=== PATIENT | female | born 1975 | race Caucasian/White ===

== ENCOUNTER → 2016-11-25 | Outpatient (CLI) | payer OTHER ==
--- NOTE | 2016-11-27 09:46 | MM ---
Reason for exam: screening (asymptomatic). Last mammogram was performed 8 years and 4 months ago. History: Lumpectomy of the left breast, August 13, 2008. Took hormonal contraceptives for 2 years. Physical Findings: A clinical breast exam by your physician is recommended on an annual basis and results should be correlated with mammographic findings. MG 3D Screening Mammo W/Cad Bilateral CC and MLO view(s) were taken. Prior study comparison: July 25, 2008, bilateral diagnostic digital mammog. The breast tissue is heterogeneously dense. This may lower the sensitivity of mammography. No persisting abnormality seen with 3D images. ASSESSMENT: Negative, BI-RAD 1 RECOMMENDATION: Routine screening mammogram of both breasts in 1 year.
== END | disposition home or self-care (01) ==
LOC: RADMAMWWP 13:16
PROVIDERS: ATTEND Family Medicine
DX: Z12.31 Encounter for screening mammogram for malignant neoplasm of breast (principal)
CPT/HCPCS: 77063; G0202

== ENCOUNTER → 2016-11-30 | Outpatient (CLI) | payer OTHER ==
[2016-11-30 08:30] LABS: Basophils % (A) 1 %; CH 22.3; CHCM 29.1; Eosinophils # (A) 0.1 k/uL (0-0.7); Eosinophils % (A) 2 %; HDW 2.82; HGB 8.6 gm/dL (11.4-16.0); Hypochromasia Marked; Luc # (Auto) 0.08; Luc % (Auto) 1; Lymphocytes # (A) 1.9 k/uL (1.0-4.8); Lymphocytes % (A) 34 %; MCH 22.8 pg (25.0-35.0); MCHC 29.7 g/dL (31.0-37.0); MCV 76.8 fL (80.0-100.0); Mean Platelet Volume 7.1; Microcytosis Slight; Monocytes # (A) 0.4 k/uL (0-1.0); Monocytes % (A) 7 %; Neutrophils # (A) 3.1 k/uL (1.3-7.7); Neutrophils % (A) 55 %; RBC 3.77 m/uL (3.80-5.40); RDW 15.6 % (11.5-15.5); WBC 5.7 k/uL (3.8-10.6); WBC (Perox) 5.66
[2016-11-30 11:31] LABS: Glucose 2 Hour 123 mg/dL
[2016-11-30 12:51] LABS: ALT 22 U/L (9-52); AST 16 U/L (14-36); Alkaline Phosphatase 78 U/L (38-126); Anion Gap 8 mmol/L; Blood Urea Nitrogen 19 mg/dL (7-17); Calcium 8.6 mg/dL (8.4-10.2); Carbon Dioxide 25 mmol/L (22-30); Chloride 108 mmol/L (98-107); Glucose 93 mg/dL (74-99); Non-African American GFR(MDRD) >60 (>60 ml/min/1.73 sqM); Potassium 4.5 mmol/L (3.5-5.1); Sodium 141 mmol/L (137-145); Total Bilirubin 0.2 mg/dL (0.2-1.3); Total Protein 6.1 g/dL (6.3-8.2)
[2016-11-30 16:32] LABS: Iron Saturation 3.11 (12.00-45.00)
[2016-11-30 20:23] LABS: Cholesterol 183 mg/dL (<200); HDL Cholesterol 46 mg/dL (40-60)
== END | disposition home or self-care (01) ==
LOC: LABWHC1 08:00
PROVIDERS: ATTEND Psychiatry & Neurology Neurology
DX: Z00.00 Encounter for general adult medical examination without abnormal findings (principal); G25.81 Restless legs syndrome
CPT/HCPCS: 36415; 80053; 80061; 82306; 82607; 82728; 82947; 82950; 83540; 83550; 84439; 84443; 84466; 84481; 85025

== ENCOUNTER → 2018-05-26 | Outpatient (CLI) | payer BC ==
--- NOTE | 2018-05-27 09:28 | MM ---
Reason for exam: screening (asymptomatic). Last mammogram was performed 1 year and 6 months ago. History: Lumpectomy of the left breast, August 13, 2008. Took hormonal contraceptives for 2 years. Physical Findings: A clinical breast exam by your physician is recommended on an annual basis and results should be correlated with mammographic findings. MG 3D Screening Mammo W/Cad Bilateral CC and MLO view(s) were taken. Prior study comparison: November 25, 2016, bilateral MG 3d screening mammo w/cad. July 25, 2008, bilateral diagnostic digital mammog. The breast tissue is heterogeneously dense. This may lower the sensitivity of mammography. No suspicious abnormality. Post lumpectomy change on the left. ASSESSMENT: Benign, BI-RAD 2 RECOMMENDATION: Routine screening mammogram of both breasts in 1 year.
== END | disposition home or self-care (01) ==
LOC: RADMAMWWP 14:39
PROVIDERS: ATTEND Family Medicine
DX: Z12.31 Encounter for screening mammogram for malignant neoplasm of breast (principal)
CPT/HCPCS: 77063; 77067

== ENCOUNTER → 2020-02-06 | Outpatient (CLI) | payer BC | END | disposition home or self-care (01) | LOC: LABWHC1 11:20 | PROVIDERS: ATTEND Nurse Practitioner Family | DX: U07.1 COVID-19 (principal) | CPT/HCPCS: U0003; C9803 ==

== ENCOUNTER → 2020-03-19 | Outpatient (CLI) | payer MEDICAID ==
--- NOTE | 2020-03-20 10:56 | MM ---
Reason for exam: screening (asymptomatic). Last mammogram was performed 1 year and 10 months ago. History: Lumpectomy of the left breast, August 13, 2008. Took hormonal contraceptives for 2 years. Physical Findings: A clinical breast exam by your physician is recommended on an annual basis and results should be correlated with mammographic findings. MG 3D Screening Mammo W/Cad Bilateral CC and MLO view(s) were taken. Prior study comparison: May 26, 2018, bilateral MG 3d screening mammo w/cad. November 25, 2016, bilateral MG 3d screening mammo w/cad. The breast tissue is heterogeneously dense. This may lower the sensitivity of mammography. No significant changes when compared with prior studies. ASSESSMENT: Benign, BI-RAD 2 RECOMMENDATION: Routine screening mammogram of both breasts in 1 year.
== END | disposition home or self-care (01) ==
LOC: RADMAMWWP 09:46
PROVIDERS: ATTEND Family Medicine
DX: Z12.31 Encounter for screening mammogram for malignant neoplasm of breast (principal)
CPT/HCPCS: 77063; 77067

== ENCOUNTER → 2021-12-12 | Outpatient (CLI) | payer MEDICAID ==
[2021-12-12 23:04] LABS: Basophils # (A) 0.02 X 10*3/uL (0.00-0.10); Basophils % (A) 0.3 %; Eosinophils # (A) 0.22 X 10*3/uL (0.04-0.35); Eosinophils % (A) 2.8 %; HCT 34.8 % (37.2-46.3); HGB 10.4 g/dL (12.0-15.0); Immature Grans, Automated 0.3 %; Lymphocytes # (A) 1.94 X 10*3/uL (0.90-5.00); Lymphocytes % (A) 25.1 %; MCH 25.4 pg (27.0-32.0); MCHC 29.9 g/dL (32.0-37.0); MCV 85.1 fL (80.0-97.0); Mean Platelet Volume 9.6 fL (9.5-12.2); Monocytes % (A) 6.5 %; NRBC Per 100 WBC 0 /100 WBCS (0.0-0.0); Neutrophils # (A) 5.03 X 10*3/uL (1.80-7.70); Platelet Count 460 X 10*3/uL (140-440); RBC 4.09 X 10*6/uL (4.10-5.20); RDW 13.8 % (11.5-14.5); WBC 7.73 X 10*3/uL (4.50-10.00)
[2021-12-13 11:38] LABS: ALT 13 U/L (8-44); AST 16 U/L (13-35); African American GFR (CKD) 88.2 (60.0-200.0); Albumin/Globulin Ratio 1.43 (1.60-3.17); Alkaline Phosphatase 87 U/L (41-126); Amylase 37 U/L (23-121); BUN/Creat Ratio 15.89 Ratio (12.00-20.00); Blood Urea Nitrogen 14.3 mg/dL (9.0-27.0); Calcium 8.9 mg/dL (8.7-10.3); Carbon Dioxide 23.7 mmol/L (20.0-27.5); Chloride 104 mmol/L (96-109); Globulin 2.8 g/dL (1.6-3.3); Glucose 136 mg/dL (70-110); Lipase 20 U/L (14-63); Non-African American GFR(CKD) 76.1 (60.0-200.0); Potassium 4.3 mmol/L (3.5-5.5); Sodium 140 mmol/L (135-145); Total Bilirubin <0.15 mg/dL (0.30-1.20); Total Protein 6.8 g/dL (6.2-8.2)
== END | disposition home or self-care (01) ==
LOC: LABWHC1 15:09
PROVIDERS: ATTEND Family Medicine
DX: R10.13 Epigastric pain (principal)
CPT/HCPCS: 36415; 80053; 82150; 83690; 85025

== ENCOUNTER → 2021-12-12 | Outpatient (CLI) | payer MEDICAID ==
--- NOTE | 2021-12-12 16:07 | XR ---
EXAMINATION TYPE: XR abdomen acute w cxr DATE OF EXAM: 12/12/2021 3:52 PM INDICATION: Patient age:Female; 46 years old; Reason for study: R10.13 EPIGASTRIC PAIN; COMPARISON: None. TECHNIQUE: Two radiographic views of the abdomen (upright and supine) and a frontal chest radiograph were obtained. FINDINGS CHEST: Lungs/Pleura: The lungs are clear. There is no evidence of pleural effusion, focal consolidation or p neumothorax. Mediastinum: Unremarkable. Vasculature: Normal. Heart: Normal in size. Musculoskeletal: The osseous structures are intact. Other findings: No significant. FINDINGS ABDOMEN: Bowel gas pattern: Normal without dilated loops of small or large bowel. Fecal material and gas are d emonstrated throughout the colon and rectum. Abnormal calcifications: None. Musculoskeletal: Normal. Other: Pelvic phlebolith noted. IMPRESSION: 1. No radiographic evidence for acute abdominal process. 2. No acute cardiopulmonary process
== END | disposition home or self-care (01) ==
LOC: RADXRMAIN 15:39
PROVIDERS: ATTEND Family Medicine
DX: R10.13 Epigastric pain (principal)
CPT/HCPCS: 74022

== ENCOUNTER → 2021-12-22 | Outpatient (CLI) | payer MEDICAID ==
--- NOTE | 2021-12-22 10:34 | US ---
EXAMINATION TYPE: US abdomen complete DATE OF EXAM: 12/22/2021 COMPARISON: NONE CLINICAL HISTORY: R10.13 epigastric pain. Pt states upper ABD cramping and pain TECHNIQUE: Multiple sonographic images of the abdomen are obtained. FINDINGS: EXAM MEASUREMENTS: Liver Length: 17.6 cm Gallbladder Wall: 0.3 cm CBD: 0.4 cm Spleen: 11.0 cm Right Kidney: 9.7 x 4.5 x 5.2 cm Left Kidney: 10.2 x 4.9 x 5.0 cm OIL RIGGER NOTES: Pancreas: wnl, tail obscured by overlying bowel gas Liver: Heterogeneous Gallbladder: wnl Evidence for sonographic Montero's sign: No CBD: wnl Spleen: wnl Right Kidney: wnl Left Kidney: wnl Upper IVC: wnl Abd Aorta: wnl The visualized liver slightly heterogeneous. The intrahepatic portion of the IVC and visualized abdo audie aorta are within normal limits. There is no evidence of cholelithiasis. Common bile duct is u nremarkable. The visualized portions of the pancreas are homogenous. The spleen is unremarkable. K idneys are symmetric and free of hydronephrosis. No renal lesions are seen. IMPRESSION: No acute findings are evident.
== END | disposition home or self-care (01) ==
LOC: RADUSWWP 09:40
PROVIDERS: ATTEND Family Medicine
DX: R10.13 Epigastric pain (principal)
CPT/HCPCS: 76700

== ENCOUNTER → 2022-01-05 | Outpatient (CLI) | payer MEDICAID ==
--- NOTE | 2022-01-05 16:19 | XR ---
EXAMINATION TYPE: XR lumbosacral spine min 4V DATE OF EXAM: 01/05/2022 COMPARISON: None HISTORY: Low back pain TECHNIQUE: 5 view lumbar spine FINDINGS: There are 5 lumbar-type vertebral bodies. Pedicles are intact. No spondylolytic defects are evident. There is loss of disc height L5-S1. Some disc space narrowing may be present L1 to and post eriorly at L3-4 and L2-3. Vertebral body heights are preserved. Alignment is preserved. IMPRESSION: 1. Mild degenerative disc changes.
== END | disposition home or self-care (01) ==
LOC: RADXRMAIN 15:20
PROVIDERS: ATTEND Family Medicine
DX: M51.36 Other intervertebral disc degeneration, lumbar region (principal); M54.50 Low back pain, unspecified
CPT/HCPCS: 72110

== ENCOUNTER → 2022-01-05 | Outpatient (CLI) | payer MEDICAID ==
--- NOTE | 2022-01-06 19:02 | MM ---
Reason for Exam: Screening (asymptomatic). Last mammogram was performed 1 year(s) and 9 month(s) ago. Patient History: Menarche at age 11. First Full-Term at age 20. Patient used Hormonal Contraceptives for 2 years. 08/13/2008, Lumpectomy on the Left side. Paternal grandmother had ovarian cancer. Last menstrual period: 12/13/2021 Risk Values: Francheska 5 year model risk: 0.8%. NCI Lifetime model risk: 8.4%. Prior Study Comparison: 11/25/2016 Bilateral Screening Mammogram, [facility]. 05/26/2018 Bilateral Screening Mammogram, [facility]. 03/19/2020 Bilateral Screening Mammogram, [facility]. Tissue Density: The breast tissue is heterogeneously dense. This may lower the sensitivity of mammography. Findings: Analyzed By CAD. Some chronic distortion is within the left breast. No significant interval change is evident. No suspicious groups of microcalcifications, spiculated or lobular masses, architectural distortion or other secondary signs of malignancy are mammographically apparent. Overall Assessment: Benign, BI-RAD 2 Management: Screening Mammogram of both breasts in 1 year. A negative mammogram report should not preclude additional follow up of suspicious palpable abnormalities. Patient should continue monthly self breast exam. A clinical breast exam by your physician is recommended on an annual basis and results should be correlated with mammographic findings. Electronically signed and approved by: Mandeep West D.O. Radiologis
== END | disposition home or self-care (01) ==
LOC: RADMAMWWP 15:00
PROVIDERS: ATTEND Family Medicine
DX: Z12.31 Encounter for screening mammogram for malignant neoplasm of breast (principal); Z80.41 Family history of malignant neoplasm of ovary
CPT/HCPCS: 77063; 77067

== ENCOUNTER → 2022-01-29 | Outpatient (CLI) | payer MEDICAID ==
--- NOTE | 2022-01-29 14:24 | US ---
EXAMINATION TYPE: US pelvis complete transvag DATE OF EXAM: 01/29/2022 COMPARISON: NONE CLINICAL HISTORY: N92.0 MENORRHAGIA. Heavy periods. Hx 3 C sections, D and C. . TECHNIQUE: Transvaginal (TV) and Transabdominal (TA) . Transabdominal sonographic images of the pel vis were acquired. Transvaginal sonographic images were medically necessary to better assess the fol lowing anatomy: Ovaries Date of LMP: 01/08/2022 EXAM MEASUREMENTS: Uterus: 12.6 x 7.4 x 5.4 cm Endometrial Stripe: 0.84 cm Right Ovary: 3.2 x 1.3 x 1.4 cm Left Ovary: 3.4 x 1.8 x 1.6 cm 1. Uterus: Appears enlarged. Anechoic area seen in cervix: 1.1 x 0.8 x 0.7 cm. Complex area seen TA mid uterus: 1.4 x 1.2 x 1.0 cm. 2. Endometrium: Measures 0.84 cm. 3. Right Ovary: Anechoic area seen: 1.1 x 1.1 x 0.9 cm. 4. Left Ovary: Complex area seen: 1.4 x 1.0 x 0.7 cm. 5. Bilateral Adnexa: Free fluid seen in left adnexa. 6. Posterior cul-de-sac: Free fluid seen. Area seen TA in the midline pelvis thought to be left ovary. IMPRESSION: 1. The uterus is enlarged. I cannot exclude leiomyoma or masses other etiology. Uterine segment. 2. Simple cyst right ovary complex lesion left ovary.
== END | disposition home or self-care (01) ==
LOC: RADUSWWP 12:50
PROVIDERS: ATTEND Obstetrics & Gynecology
DX: N92.0 Excessive and frequent menstruation with regular cycle (principal); N83.291 Other ovarian cyst, right side; N85.2 Hypertrophy of uterus
CPT/HCPCS: 76830; 76856

== ENCOUNTER → 2022-04-23 | Outpatient (CLI) | payer BC ==
[2022-04-23 15:01] LABS: Basophils # (A) 0.04 X 10*3/uL (0.00-0.10); Basophils % (A) 0.5 %; Eosinophils # (A) 0.17 X 10*3/uL (0.04-0.35); Eosinophils % (A) 2.1 %; HCT 33.1 % (37.2-46.3); HGB 9.4 g/dL (12.0-15.0); Immature Grans, Automated 0.4 %; Lymphocytes # (A) 1.96 X 10*3/uL (0.90-5.00); Lymphocytes % (A) 24.1 %; MCHC 28.4 g/dL (32.0-37.0); MCV 81.1 fL (80.0-97.0); Mean Platelet Volume 9.3 fL (9.5-12.2); Monocytes # (A) 0.58 X 10*3/uL (0.20-1.00); Monocytes % (A) 7.1 %; NRBC Per 100 WBC 0 /100 WBCS (0.0-0.0); Neutrophils # (A) 5.34 X 10*3/uL (1.80-7.70); Neutrophils % (A) 65.8 %; Platelet Count 422 X 10*3/uL (140-440); RBC 4.08 X 10*6/uL (4.10-5.20); RDW 17.6 % (11.5-14.5); WBC 8.12 X 10*3/uL (4.50-10.00)
[2022-04-23 16:19] LABS: African American GFR (CKD) 119.6 (60.0-200.0); Anion Gap 13.2 mmol/L (10.00-18.00); BUN/Creat Ratio 19.43 Ratio (12.00-20.00); Blood Urea Nitrogen 13.6 mg/dL (9.0-27.0); Calcium 8.8 mg/dL (8.7-10.3); Carbon Dioxide 20.8 mmol/L (20.0-27.5); Non-African American GFR(CKD) 103.2 (60.0-200.0); Potassium 4.4 mmol/L (3.5-5.5)
== END | disposition home or self-care (01) ==
LOC: LABWHC1 10:14
PROVIDERS: ATTEND Obstetrics & Gynecology
DX: Z01.812 Encounter for preprocedural laboratory examination (principal)
CPT/HCPCS: 36415; 80048; 85025

== ENCOUNTER 2022-04-30 05:32 | Day surgery (SDC) | payer BC, MEDICAID ==
[2022-04-27 16:14] VITALS: BMI 35.6
--- NOTE | 2022-04-29 11:53 | P.HPOB ---
History of Present Illness H&P Date: 04/29/22 Chief Complaint: menorrhagia 46 year old presents for total laparoscopic hysterectomy and bilateral salpingectomy using da natalia, diagnostic cystoscopy, possible GARRET BSO. Review of Systems All systems: negative Constitutional: Denies chills, Denies fever Eyes: denies blurred vision, denies pain Ears, nose, mouth and throat: Denies headache, Denies sore throat Cardiovascular: Denies chest pain, Denies shortness of breath Respiratory: Denies cough Gastrointestinal: Denies abdominal pain, Denies diarrhea, Denies nausea, Denies vomiting Genitourinary: Denies dysuria, Denies hematuria Musculoskeletal: Denies myalgias Integumentary: Denies pruritus, Denies rash Neurological: Denies numbness, Denies weakness Psychiatric: Denies anxiety, Denies depression Endocrine: Denies fatigue, Denies weight change Past Medical History Past Medical History: No Reported History Additional Past Medical History / Comment(s): RESTLESS LEG SYNDROME. HEAVY PERIODS WITH LOW IRON AND LOW HEMOGLOBIN History of Any Multi-Drug Resistant Organisms: None Reported Past Surgical History: Breast Surgery, Section, Tonsillectomy Additional Past Surgical History / Comment(s): LEFT BREAST CYST REMOVAL. CYSTS REMOVED FROM HAND. MULTIPLE LIPOMA REMOVALS Past Anesthesia/Blood Transfusion Reactions: No Reported Reaction Past Psychological History: No Psychological Hx Reported Smoking Status: Never smoker Past Alcohol Use History: None Reported Past Drug Use History: None Reported - Past Family History Brother(s) Family Medical History: Deep Vein Thrombosis (DVT) Medications and Allergies Home Medications Medication Instructions Recorded Confirmed Type Montelukast [Singulair] 10 mg PO DAILY 04/27/22 04/27/22 History Pramipexole [Mirapex] 0.75 mg PO HS 04/27/22 04/27/22 History Allergies Allergy/AdvReac Type Severity Reaction Status Date / Time No Known Allergies Allergy Verified 04/27/22 16:03 Exam Osteopathic Statement: *. No significant issues noted on an osteopathic structural exam other than those noted in the History and Physical/Consult. HEart: RRR Lungs: CTAB Abdomen: soft, nontender Extremeties: neg alexander's Assessment and Plan (1) Menorrhagia Status: Acute Code(s): N92.0 - EXCESSIVE AND FREQUENT MENSTRUATION WITH REGULAR CYCLE SNOMED Code(s): 987927746 Plan: Total laparoscopic hysterectomy bilateral salpingectomy with da natalia, diagnostic cystoscopy and possible GARRET BSO
[2022-04-30] MEDS ORDERED: SCOPOLAMINE 1 MG/72 HR PATCH TRANSDERM ONE (05:54)
[2022-04-30] MEDS ORDERED: LIDOCAINE 1% (10MG/ML) FOR IV START INTRADERMA PRN (05:54)
[2022-04-30] MEDS ORDERED: DEXAMETHASONE SOD PHOSPHATE 4 MG/ML 1 ML VIAL IV ONE (05:54)
[2022-04-30] MEDS ORDERED: LACTATED RINGERS 1,000 ML IV SCH (05:54)
[2022-04-30 06:32] LABS: Anisocytosis Slight; Basophils % (A) 0 %; Eosinophils # (A) 0.2 k/uL (0-0.7); Eosinophils % (A) 3 %; HCT 34.1 % (34.0-46.0); HGB 10.7 gm/dL (11.4-16.0); Hypochromasia Moderate; Lymphocytes # (A) 2.1 k/uL (1.0-4.8); Lymphocytes % (A) 36 %; MCH 24.6 pg (25.0-35.0); MCHC 31.5 g/dL (31.0-37.0); MCV 78.3 fL (80.0-100.0); Mean Platelet Volume 6.5; Microcytosis Slight; Monocytes # (A) 0.3 k/uL (0-1.0); Monocytes % (A) 6 %; Neutrophils % (A) 53 %; Platelet Count 397 k/uL (150-450); RBC 4.36 m/uL (3.80-5.40); RDW 17.6 % (11.5-15.5); WBC 5.8 k/uL (3.8-10.6)
[2022-04-30] MEDS ORDERED: MIDAZOLAM 2 MG/2 ML VIAL IV ONE (06:46)
[2022-04-30] MEDS ORDERED: HYDROmorphone 0.5 MG/0.5 ML SYRINGE IVP PRN (07:00)
[2022-04-30] MEDS ORDERED: ONDANSETRON 4 MG/2 ML VIAL IVP PRN ×2 (07:00→10:04)
[2022-04-30] MEDS ORDERED: LIDOCAINE 2% INJ 20 MG/ML (2 ML VIAL) ONE (07:14)
[2022-04-30] MEDS ORDERED: SUCCINYLCHOLINE CHLORIDE 200 MG/10 ML VIAL IV ONE (07:14)
[2022-04-30] MEDS ORDERED: PHENYLEPHRINE-0.9% NACL SYG 1,000 MCG/10 ML SYRINGE ONE (07:14)
[2022-04-30] MEDS ORDERED: ROCURONIUM 10 MG/ML (5 ML VIAL) IV ONE (07:14)
[2022-04-30] MEDS ORDERED: HYDROmorphone (PF) 1 MG/ML ONE (07:14)
[2022-04-30] MEDS ORDERED: GLYCOPYRROLATE 0.2 MG/ML 2 ML VIAL ONE (07:14)
[2022-04-30] MEDS ORDERED: PROPOFOL 10 MG/ML 20 ML VIAL IV ONE (07:14)
[2022-04-30] MEDS ORDERED: NEOSTIGMINE 1 MG/ML 10 ML VIAL ONE (07:14)
[2022-04-30] MEDS ORDERED: fentaNYL (PF) 50 MCG/ML 2 ML AMP ONE (07:14)
--- NOTE | 2022-04-30 07:58 | P.ANPRN ---
Procedure Note - Anesthesia - Epidural/Spinal Spinal Time Out Performed: Yes Date of Procedure: 04/30/22 Procedure Start Time: 06:45 Procedure Stop Time: 06:50 Location of Patient: PreOp Indication: Acute Post-Operative Pain, Requested by Surgeon Sedation Type: Sedate with meaningful contact maintained Preparation: Sterile Prep Number of Attempts: 1 Position: Sitting Catheter: None Needle Guage: 25 Injectate: 300mcg Duramorph and 20mcg fentanyl Blood Aspirated: No Pain Paresthesia on Injection Noted: No Events: Uneventful and Well Tolerated
[2022-04-30] MEDS ORDERED: BUPIVACAINE (PF) 0.25% 30 ML VIAL SQ ONE (08:33)
[2022-04-30] MEDS ORDERED: LACTATED RINGERS 1,000 ML IV ONE (09:02)
--- NOTE | 2022-04-30 09:19 | P.OP ---
Date of Procedure: 04/30/22 Preoperative Diagnosis: 1. menorrhagia Postoperative Diagnosis: 1. menorrhagia 2. pelvic adhesions 3. right ovarian cyst Procedure(s) Performed: Total laparoscopic hysterectomy bilateral salpingectomy and removal of right ovarian cyst using da Mayo, diagnostic cystoscopy Anesthesia: BAYLEE Surgeon: Julia Jha Scorer Helper #1: Stacey Enrique Estimated Blood Loss (ml): 150 IV fluids (ml): 1,000 Urine output (ml): 100 Pathology: other (Uterus, cervix, bilateral fallopian tubes and right ovarian cyst) Condition: stable Disposition: PACU Operative Findings: Enlarged uterus sounded to 12 cm, adhesions from the bowel to left pelvic sidewall. Adhesions from the anterior uterus and bladder to the anterior abdominal wall. Normal appearing ovaries except for a cyst in the right ovary that was removed. Description of Procedure: Patient taken the operating room where general anesthesia was obtained without difficulty. She is prepped and draped in normal sterile fashion dorsal lithotomy position, legs placed in the Tony stirrups. Weighted speculum placed in the vagina and the anterior lip the cervix was grasped with single-tooth tenaculum. The uterus sounded to 12 cm and the cervix diameter was 4 cm. The appropriate manipulator tip and ring were placed on the Aileen manipulator. The Aileen manipulator was then placed in the uterus. Lopez catheter was also placed. Attention was then turned to the abdomen and gloves were changed. A 5 mm supraumbilical incision was made the scalpel and a 5 mm optical trocar was placed under direct visualization. 10 cm to the right of this and 2 cm down a 5 mm incision was made and 8 mm da Mayo port was placed under direct visualization. Same measurements on the opposite side of the patient's abdomen, the 5 mm incision was made and 8 mm da Mayo port was placed under direct visualization. In the left upper quadrant a 10 mm incision was made and a 10 mm optical trocar was placed under direct visualization. The 5 mm optical trocar was then replaced with the 8 mm da Mayo camera port. The robot was docked on patient's left side. The camera was introduced and then the monopolar curved scissor and [place] bipolar placed under direct visualization. I broke scrub and went to the physician console. The left fallopian tube was grasped with a grasper, cauterized with the [place] bipolar and cut with monopolar curved scissors to free the fimbriated end which was then pulled through the trocar. The left round ligament and left uterosacral ligaments were cauterized with the [place] bipolar and cut with monopolar curved scissors. The posterior leaf of the broad ligament was taken down using the monopolar curved scissors. Anterior leaf of the broad ligament was then taken down using the monopolar curved scis sors. The uterine artery was cauterized with the [place] bipolar and cut with monopolar curved scissors. The bladder flap was then started using the monopolar curved scissors. Attention was then turned to the right side of the patient's anatomy and the right fallopian tube segment was cauterized with the [place] bipolar and cut with monopolar curved scissors, the specimen was removed through the customer care assistant port. The right round ligament and utero-ovarian ligaments were cauterized with the [place] bipolar and cut with monopolar curved scissors. Posterior leaf of the broad ligament was taken down using the monopolar curved scissors and the anterior leaf was taken down using the monopolar curved scissors. The uterine artery was cauterized the [place] bipolar cut with monopolar curved scissors. The bladder flap was then finished on this side. Anterior colpotomy was made using the monopolar curved scissors. The rest of the uterus was from the vaginal cuff by following the ring around with the monopolar curved scissors through the uterosacral ligaments back to the anterior portion. Once the uterus and cervix were amputated they were pulled through the vaginal cuff. Hemostasis was assured. The instruments were changed for the Cardier forcep and the jah suture cut. The vaginal cuff was then closed using O stratafix barbed suture in a running fashion. Hemostasis was again assured and the pelvis was irrigated. All instruments were removed from the abdomen and the robot was undocked. I scrubbed back in to perform a cystoscopy. There were jets from both ureteral orifices. The abdominal incisions were closed with 4-0 Vicryl in a subcuticular fashion. Patient tolerated the procedure well, sponge and instrument counts correct 2 and she was taken to recovery room in stable condition condition
[2022-04-30] MEDS ORDERED: SIMETHICONE 80 MG CHEWABLE PO PRN (10:04)
[2022-04-30] MEDS ORDERED: KETOROLAC 15 MG/ML 1 ML VIAL IVP PRN (10:04)
[2022-04-30] MEDS ORDERED: METOCLOPRAMIDE 5 MG/ML 2 ML VIAL IVP PRN (10:04)
[2022-04-30 13:02] VITALS: RESP 16
[2022-04-30] MEDS: SENNOSIDES-DOCUSATE SODIUM 1 EACH TAB PO SCH (20:34)
[2022-04-30 20:58] VITALS: TEMP 98.3
[2022-04-30] MEDS ORDERED: PRAMIPEXOLE 0.25 MG TAB PO SCH (21:00)
[2022-05-01] MEDS: ACETAMINOPHEN TAB 325 MG TAB PO PRN ×2 (04:44→11:28)
[2022-05-01 07:21] LABS: Anisocytosis Slight; Basophils % (A) 0 %; Eosinophils % (A) 1 %; HCT 29.9 % (34.0-46.0); HGB 9.3 gm/dL (11.4-16.0); Hypochromasia Moderate; Lymphocytes # (A) 2.4 k/uL (1.0-4.8); Lymphocytes % (A) 26 %; MCH 24.9 pg (25.0-35.0); MCHC 31.2 g/dL (31.0-37.0); MCV 79.8 fL (80.0-100.0); Mean Platelet Volume 6.9; Microcytosis Slight; Monocytes # (A) 0.6 k/uL (0-1.0); Monocytes % (A) 7 %; Neutrophils # (A) 5.9 k/uL (1.3-7.7); Neutrophils % (A) 65 %; Platelet Count 346 k/uL (150-450); RBC 3.75 m/uL (3.80-5.40); RDW 17.8 % (11.5-15.5); WBC 9.1 k/uL (3.8-10.6)
[2022-05-01 07:54] VITALS: BP 116/67; PULSE 82
--- NOTE | 2022-05-01 08:06 | P.DS ---
Providers Expected date of discharge: 05/01/22 Attending physician: Julia Jha Primary care physician: Yogi Fenton - Discharge Diagnosis(es) (1) Menorrhagia Current Visit: No Status: Resolved (2) History of robot-assisted laparoscopic hysterectomy Current Visit: Yes Status: Acute Hospital Course: Patient presented for TLHBSO using da Mayo and diagnostic cystoscopy. She underwent this procedure without complication. Postoperative course was uneventful. She denies nausea, vomiting, chest pain, shortness of breath or calf pain. Her incisions are clean, dry, intact. Patient will be discharged home postoperative day #1 in stable condition to follow-up with me in 3 weeks. Plan - Discharge Summary Discharge Rx Participant: Yes New Discharge Prescriptions: New Ibuprofen [Motrin] 600 mg PO Q6HR PRN #30 tab PRN Reason: Mild Pain Or Fever >= 100.5 oxyCODONE HCL 5 mg PO Q6H 3 Days #12 cap No Action Montelukast [Singulair] 10 mg PO DAILY Pramipexole [Mirapex] 0.75 mg PO HS Discharge Medication List Montelukast [Singulair] 10 mg PO DAILY 04/27/22 [History] Pramipexole [Mirapex] 0.75 mg PO HS 04/27/22 [History] Ibuprofen [Motrin] 600 mg PO Q6HR PRN #30 tab 05/01/22 [Rx] oxyCODONE HCL 5 mg PO Q6H 3 Days #12 cap 05/01/22 [Rx] Follow up Appointment(s)/Referral(s): Julia Jha DO [Doctor of Osteopathic Medicine] - 3 Weeks Discharge Disposition: HOME SELF-CARE
[2022-05-01] MEDS: SENNOSIDES-DOCUSATE SODIUM 1 EACH TAB PO SCH (08:26)
[2022-05-01] MEDS ORDERED: MONTELUKAST 10 MG TAB PO SCH (09:00)
--- NOTE | 2022-05-01 09:01 | P.PN ---
Progress Note - Text Progress Note Date: 05/01/22 ([id number]) Anesthesia Postop day 1 Subjective: Status Post total abdominal hysterectomy with Duramorph. Patient seen and examined. Doing well without complaint. VAS 2 out of 10. No nausea or vomiting. Mild pruritus tolerable.. Afebrile. Gross lower extremity strength intact. Without apparent anesthetic complications. Objective: Vital signs reviewed Heart: Regular Rate Lungs: Good chest excursion Abdomen: Appears nondistended Assessment: Status post total abdominal hysterectomy with Duramorph postop day 1 Plan: Continue current care with your medical management. Anticipated and the Duramorph around midnight tonight, you may see increased pain needs around this time.
[2022-05-01] MEDS ORDERED: IBUPROFEN 600 MG TAB PO SCH (12:00)
== END 2022-05-01 14:00 | disposition home or self-care (01) ==
LOC: OR 05:32 → 4FBP 09:23 → OR 05-01 14:00
PROVIDERS: ATTEND Obstetrics & Gynecology
DX: N80.03 Adenomyosis of the uterus (principal); N83.201 Unspecified ovarian cyst, right side; N83.8 Other noninflammatory disorders of ovary, fallopian tube and broad ligament; N73.6 Female pelvic peritoneal adhesions (postinfective); G25.81 Restless legs syndrome
CPT/HCPCS: 81025; 86900; 86901; 85025 ×2; 86850; 88307; 58552; 58662; J2250; J1100; J0690; J2405; J1885

== ENCOUNTER 2022-05-27 08:02 | Day surgery (SDC) | payer BC, MEDICAID ==
[2022-05-21 15:37] VITALS: BMI 34.5
--- NOTE | 2022-05-25 13:22 | P.PN ---
Progress Note - Text Progress Note Date: 05/25/22 Patient called with concerns of prep answered. No further questions. Patient encouraged to start prep early in the day with reinforcement of clear liquid diet.
[~2022-05-27 08:02] MED LIST: LACTATED RINGERS 1,000 ML IV SCH; LIDOCAINE 1% (10MG/ML) FOR IV START INTRADERMA PRN
[2022-05-27 08:37] VITALS: TEMP 97.3
--- NOTE | 2022-05-27 08:43 | P.GSHP ---
History of Present Illness H&P Date: 05/27/22 CHIEF COMPLAINT: GERD and colon screen HISTORY OF PRESENT ILLNESS: The patient is a 46-year-old female who presents with gastroesophageal reflux disease and need for colon screen. Upper and lower endoscopy were offered for further evaluation and management. PAST MEDICAL HISTORY: Please see list. PAST SURGICAL HISTORY: Please see list. MEDICATIONS: Please see list. ALLERGIES: Please see list. SOCIAL HISTORY: No illicit drug use FAMILY HISTORY: No reports of Crohn disease or ulcerative colitis. REVIEW OF ORGAN SYSTEMS: CONSTITUTIONAL: No reports of fevers or chills. GI: Denies any blood in stools or constipation. PHYSICAL EXAM: VITAL SIGNS: Stable GENERAL: Well-developed pleasant in no acute distress. HEENT: No scleral icterus. Extraocular movements grossly intact. Moist buccal mucosa. NECK: Supple without lymphadenopathy. CHEST: Unlabored respirations. Equal bilateral excursions. CARDIOVASCULAR: Regular rate and rhythm. Distal 2+ pulses. ABDOMEN: Soft, nondistended. MUSCULOSKELETAL: No clubbing, cyanosis, or edema. ASSESSMENT: 1. Gastroesophageal reflux disease 2. Colon screen. PLAN: 1. Recommend proceeding with an upper and lower endoscopy Past Medical History Past Medical History: GERD/Reflux, Musculoskeletal Disorder Additional Past Medical History / Comment(s): DDD WITH LOWER BACK PAIN, SEASONAL ALLERGIES, RLS, FREQUENT BURPS WITH REFLUX., HX CONSTIPATION. History of Any Multi-Drug Resistant Organisms: None Reported Past Surgical History: Breast Surgery, Section, Hysterectomy, Tonsillectomy Additional Past Surgical History / Comment(s): BREAST CYST., X3, D & C., CYST ON PALM REMOVED, FATTY LIPOMAS REMOVED., ROBOTIC HYSTERECTOMY WITH NEIDA SALPINGECTOMY AND RIGHT OVARIAN CYST (04/30/2022) Past Anesthesia/Blood Transfusion Reactions: Previous Problems w/ Anesthesia Additional Past Anesthesia/Blood Transfusion Reaction / Comment(s): ITCHING AFTER HYSTERECTOMY. Past Psychological History: No Psychological Hx Reported Smoking Status: Never smoker Past Alcohol Use History: None Reported Past Drug Use History: None Reported - Past Family History Mother Family Medical History: Cancer Additional Family Medical History / Comment(s): SKIN CANCER Father Family Medical History: Cancer Additional Family Medical History / Comment(s): THYROID CANCER, DIGESTIVE ISSUES. Medications and Allergies Home Medications Medication Instructions Recorded Confirmed Type Pramipexole [Mirapex] 0.75 mg PO HS 04/27/22 05/27/22 History Cholecalciferol [Vitamin D3 (125 125 mcg PO DAILY 05/21/22 05/27/22 History Mcg = 5000 Iu)] Ibuprofen [Motrin Ib] 400 mg PO DIRECTED PRN 05/21/22 05/27/22 History Vit C/E/Zn/Coppr/Lutein/Zeaxan 1 each PO DAILY 05/21/22 05/27/22 History [Preservision Areds 2 Softgel] Allergies Allergy/AdvReac Type Severity Reaction Status Date / Time avocado Allergy Unknown burning in Verified 05/27/22 08:32 mouth macadamia nut oil Allergy Unknown burning in Verified 05/27/22 08:32 mouth ravindra Allergy Unknown Dyspnea Verified 05/27/22 08:32 pistachio nut Allergy Unknown burning in Verified 05/27/22 08:32 mouth bandaides with fabric Allergy Unknown red Uncoded 05/27/22 08:32 irritated skin Surgical - Exam Vital Signs Temp Pulse Resp BP Pulse Ox 97.3 F L 66 18 141/77 98 05/27/22 08:35 05/27/22 08:35 05/27/22 08:35 05/27/22 08:35 05/27/22 08:35
[2022-05-27] MEDS ORDERED: MIDAZOLAM 2 MG/2 ML VIAL ONE (09:06)
[2022-05-27] MEDS ORDERED: LIDOCAINE 2% INJ 20 MG/ML (2 ML VIAL) ONE (09:06)
[2022-05-27] MEDS ORDERED: fentaNYL (PF) 50 MCG/ML 2 ML AMP ONE (09:06)
[2022-05-27] MEDS ORDERED: PROPOFOL 10 MG/ML 20 ML VIAL IV ONE (09:06)
[2022-05-27 09:43] VITALS: RESP 16
[2022-05-27 09:57] VITALS: BP 128/73; PULSE 72
--- NOTE | 2022-05-27 10:07 | P.PCN ---
Date of Procedure: 05/27/22 Description of Procedure: PREOPERATIVE DIAGNOSIS: Colonoscopy screening. POSTOPERATIVE DIAGNOSIS: Colonoscopy screening. Colitis OPERATION: Colonoscopy to the cecum, ileocecal valve and appendiceal orifice. Colonoscopy with cold forceps biopsy SURGEON: Herlinda Nascimento MD. ANESTHESIA: MAC. INDICATIONS: The patient is a 46-year-old female who presents for colonoscopy screening. Benefits and risks were described and informed consent was obtained. DESCRIPTION OF PROCEDURE: The patient had undergone Sutab prep. The patient had been brought into the operating room and laid in the left lateral decubitus position. After adequate intravenous sedation, the rectum was examined with 2% lidocaine jelly. No external hemorrhoids were encountered. The rectal tone was within normal limits. No lesions were palpated in the rectal vault. An Olympus colonoscope was advanced until the cecum, ileocecal valve and appendiceal orifice were clearly viewed. The sigmoid colon was highly redundant requiring abdominal pressure. The prep was excellent. No scattered diverticulosis was encountered. No colonic polyps were found. Biopsies obtained for colitis, colon. Retroflexion of the scope demonstrated grade 1 internal hemorrhoids without active bleeding or inflammation. The colon was desufflated. The patient had tolerated the procedure well. Withdrawal time was over 6 minutes. FINDINGS: Aronchick preparation quality scale 1 (1-5) Internal hemorrhoids, grade 1 No external prolapsed hemorrhoids. No arteriovenous malformations. No adenomatous polyps. Cold forceps biopsies obtained for microscopic colitis Redundant sigmoid colon requiring abdominal pressure RECOMMENDATIONS: Lower endoscopy 10 years, 2032 Plan - Discharge Summary New Discharge Prescriptions: New Sucralfate [Carafate] 1 gm PO BID #30 tablet Omeprazole [PriLOSEC] 40 mg PO DAILY #14 cap Continue Pramipexole [Mirapex] 0.75 mg PO HS Vit C/E/Zn/Coppr/Lutein/Zeaxan [Preservision Areds 2 Softgel] 1 each PO DAILY Cholecalciferol [Vitamin D3 (125 Mcg = 5000 Iu)] 125 mcg PO DAILY Discontinued Ibuprofen [Motrin Ib] 400 mg PO DIRECTED PRN PRN Reason: Pain Discharge Medication List Pramipexole [Mirapex] 0.75 mg PO HS 04/27/22 [History] Cholecalciferol [Vitamin D3 (125 Mcg = 5000 Iu)] 125 mcg PO DAILY 05/21/22 [History] Vit C/E/Zn/Coppr/Lutein/Zeaxan [Preservision Areds 2 Softgel] 1 each PO DAILY 05/21/22 [History] Omeprazole [PriLOSEC] 40 mg PO DAILY #14 cap 05/27/22 [Rx] Sucralfate [Carafate] 1 gm PO BID #30 tablet 05/27/22 [Rx] Follow up Appointment(s)/Referral(s): Herlinda Nascimento MD [STAFF PHYSICIAN] - 06/23/22 Patient Instructions/Handouts: Peptic Ulcer (DC) Activity/Diet/Wound Care/Special Instructions: Repeat colonoscopy 10 years, 2032 Discharge Disposition: HOME SELF-CARE
--- NOTE | 2022-05-27 10:46 | P.PCN ---
Date of Procedure: 05/27/22 Description of Procedure: PREOPERATIVE DIAGNOSIS: Gastroesophageal reflux disease. POSTOPERATIVE DIAGNOSIS: Acute gastric ulcer recent bleed Acute gastritis of recent bleed Gastroesophageal reflux disease OPERATION: Esophagogastroduodenoscopy with biopsies along antrum and duodenum SURGEON: Herlinda Nascimento MD ANESTHESIA: MAC. INDICATIONS: The patient is a 46-year-old female who presents with reflux disease. Benefits and risks of the procedure were described. Informed consent was obtained. DESCRIPTION: The patient was brought into the endoscopy suite and laid in the left lateral decubitus position. An Olympus gastroscope was passed along the posterior oropharynx down to the distal esophagus where the squamocolumnar junction was encountered at 40 cm from the incisors. The stomach was entered and no bile reflux was found. Additional findings are listed below. Biopsies with cold forceps were obtained of the antrum. The first through third portion of the duodenum was examined. Retroflexion of the scope confirmed Hill grade 2 lower esophageal valve. The squamocolumnar junction demonstrated LA grade B erosive esophagitis. The stomach was desufflated. The patient tolerated the procedure well. FINDINGS: Squamocolumnar junction 40 cm from the incisors. Diaphragmatic hiatus at 40 cm. Hill grade 2 lower esophageal valve. LA grade B erosive esophagitis. Cold forceps biopsies obtained duodenum Acute gastritis with bleeding Acute gastric ulcer bleeding Biopsies obtained of the antrum RECOMMENDATIONS: Discontinue ibuprofen Prilosec and Carafate for 2 weeks.
== END 2022-05-27 10:51 | disposition home or self-care (01) ==
LOC: ORWHC2ENDO 08:02
PROVIDERS: ATTEND Surgery Plastic and Reconstructive Surgery
DX: Z12.11 Encounter for screening for malignant neoplasm of colon (principal); K63.89 Other specified diseases of intestine; K52.9 Noninfective gastroenteritis and colitis, unspecified; K64.0 First degree hemorrhoids; K29.50 Unspecified chronic gastritis without bleeding; K25.0 Acute gastric ulcer with hemorrhage; K21.00 Gastro-esophageal reflux disease with esophagitis, without bleeding; K44.9 Diaphragmatic hernia without obstruction or gangrene; G25.81 Restless legs syndrome; Z87.39 Personal history of other diseases of the musculoskeletal system and connective tissue; Z90.79 Acquired absence of other genital organ(s); Z80.8 Family history of malignant neoplasm of other organs or systems; Z79.1 Long term (current) use of non-steroidal anti-inflammatories (NSAID); Z91.018 Allergy to other foods; Z88.8 Allergy status to other drugs, medicaments and biological substances
CPT/HCPCS: 88305; 45380; 43239; J2250; J3010; J2704; J2001

== ENCOUNTER → 2023-04-16 | Outpatient (CLI) | payer OTHER ==
--- NOTE | 2023-04-16 14:41 | XR ---
3 views left knee. DATE: 04/16/2023. COMPARISON: None available. CLINICAL HISTORY: Pain. IMPRESSION: No fracture, subluxation or dislocation is seen. There is no effusion. The joint spaces are preserved.
== END | disposition home or self-care (01) ==
LOC: RADXRMAIN 14:08
PROVIDERS: ATTEND Family Medicine
DX: M23.92 Unspecified internal derangement of left knee (principal); M25.562 Pain in left knee

== ENCOUNTER → 2023-11-10 | Outpatient (CLI) | payer OTHER ==
--- NOTE | 2023-11-10 08:10 | MM ---
Reason for Exam: Clinical finding. Last mammogram was performed 1 year(s) and 11 month(s) ago. Patient History: Menarche at age 11. First Full-Term at age 20. Hysterectomy at age 47. Patient used Hormonal Contraceptives for 2 years. 08/13/2008, Lumpectomy on the Left side. Paternal grandmother had ovarian cancer. Risk Values: Francheska 5 year model risk: 0.8%. NCI Lifetime model risk: 8.2%. Tissue Density: The breasts are heterogeneously dense, which may obscure small masses. Findings: Analyzed By CAD. No distinct abnormality at the site of clinical concern right breast 12:00 position. Scattered punctate calcifications without suspicious cluster. Distortion left breast from prior surgical excision. No suspicious masses present. Correlate clinically. Ultrasound recommended. Overall Assessment: Incomplete: need additional imaging evaluation, BI-RAD 0 Management: Diagnostic Breast Ultrasound of the right breast. . Results were given to the patient verbally at the time of exam. Patient should continue monthly self-breast exams. A clinical breast exam by your physician is recommended on an annual basis. This exam should not preclude additional follow-up of suspicious palpable abnormalities. Note on Francheska scores and lifetime risk: 1. A Francheska score greater than 3% is considered moderate risk. If this is the case, consider specialist referral to assess eligibility for a risk reducing agent. 2. If overall lifetime risk for the development of breast cancer is 20% or higher, the patient may qualify for future screening with alternating mammogram and breast MRI. [facility], , 11/10/2023 8:07 AM. Electronically signed and approved by: Humberto Greene M.D. Radiologis
--- NOTE | 2023-11-10 08:26 | USB ---
Reason for Exam: Clinical finding. Patient History: Menarche at age 11. First Full-Term at age 20. Hysterectomy at age 47. Patient used Hormonal Contraceptives for 2 years. 08/13/2008, Lumpectomy on the Left side. Paternal grandmother had ovarian cancer. Risk Values: Francheska 5 year model risk: 0.8%. NCI Lifetime model risk: 8.2%. Technique: Method: Targeted. Prior Study Comparison: 05/26/2018 Bilateral Screening Mammogram, [facility]. 03/19/2020 Bilateral Screening Mammogram, [facility]. 01/05/2022 Bilateral MG 3D screening mammo w/cad, [facility]. Findings: The area of palpable concern of the right breast, the axilla of the right breast and the retroareolar of the right breast were scanned. No solid or cystic masses are identified.. Overall Assessment: Negative, BI-RAD 1 Management: Screening Mammogram of both breasts in 1 year. A clinical breast exam by your physician is recommended on an annual basis and results should be correlated with mammographic findings. This exam should not preclude additional follow-up of suspicious palpable abnormalities. Results were given to the patient verbally at the time of exam. [facility], , 11/10/2023 8:23 AM. Electronically signed and approved by: Humberto Greene M.D. Radiologis
== END | disposition home or self-care (01) ==
LOC: RADMAMWWP 07:27
PROVIDERS: ATTEND Family Medicine
DX: N63.0 Unspecified lump in unspecified breast
CPT/HCPCS: 77062; 77066